=== PATIENT | female | born 1950 | race Caucasian/White ===

== ENCOUNTER 2016-11-11 16:48 | Emergency (ER) | payer OTHER ==
[~2016-11-11] VITALS: Ht 157.5 cm; Wt 81.4 kg
[~2016-11-11 16:48] MED LIST: ALBU8.5H INH; LEVO100T12 PO
[2016-11-11 16:49] VITALS: Ht 157.5 cm; Wt 81.4 kg
--- NOTE | 2016-11-11 16:50 | NUR ---
PROVIDER Karen RAMACHANDRAN APRN AT BEDSIDE FOR EXAM.
--- OUTSIDE RECORDS SUMMARY | 2016-11-11 16:53 | XMS REPORT | Continuity of Care Document ---
Author Author [facility] Organization [facility] Address Unknown Phone Unavailable Support Name Relationship Address Phone MATTIE HAGEN Caregiver [address] [place], [place] [id number] POONAM BARRIENTOS DPM Caregiver [address] [place], [place] [address] [phone] ARIEL LYNN Next Of Kin [address] [place], [place] [id number] Insurance Providers Payer Name Policy Number Subscriber Name Relationship [employer] Ppo/Open Choice [id number] Ariel Lynn 01 Spouse Advance Directives Directive Response Recorded Date/Time Ordered Resuscitation Status Full Code, unverified 06/16/14 10:54am Resuscitation Documents on File No 06/16/14 9:17am Problems No known problems or medical conditions. Medications Medication Dose Route Sig Days/Qty Instructions Order Date Discontinued Date Status Azithromycin 250 Mg PO 08/24/08 09/14/08 Discontinued Levothyroxine Sodium 1 Tab PO BEFORE BREAKFAST Once daily before breakfast 06/16/14 Active Albuterol Sulfate 1 Puff INH NEEDED 06/16/14 Active Social History Social History Problem Response Recorded Date/Time Smoking Status Never smoker 06/17/2014 7:30am Chewing Tobacco Status No 06/16/2014 9:13am Hx Substance Use No 06/16/2014 9:13am Hx Alcohol Use Y WINE OCCASIONALLY 06/17/2014 7:30am Has the pt used tobacco in the last 12 months No 06/16/2014 9:13am Hospital Discharge Instructions No hospital discharge instructions. Plan of Care No plan of care. Functional Status No functional status results. Allergies, Adverse Reactions, Alerts Allergen Type Severity Reaction Status Last Updated Penicillin Allergy Unknown Active 08/24/08 Sulfa (Sulfonamide Antibiotics) Allergy Unknown Active 06/16/14 Peanuts Allergy Intermediate hives Active 09/15/08 Iodine Allergy Severe SWELLING Active 08/24/08 Codeine Allergy Mild RASH Active 09/14/08 Hydrocodone Adverse Reaction Unknown N/V Active 06/16/14 Peanut Oil Allergy Intermediate hives Active 09/15/08 Immunizations Name Given Type Hx Influenza Vaccination No Historical Hx Pneumococcal Vaccination No Historical Hx Influenza Vaccination No Historical Vital Signs Acute Vital Signs Vital Response Date/Time Temperature (Fahrenheit) 97.7 deg F (96.8 - 99.1) Temperature (Calculated Celsius) 36.20859 degrees C (36.0 - 37.3) Temperature Source Temporal Pulse Rate (adult) 74 bpm (60 - 100) Respiratory Rate 16 breaths/min (10 - 20) O2 Sat by Pulse Oximetry 95 % (90 - 100) Oxygen Delivery Method Room Air Blood Pressure 134/66 mm Hg Blood Pressure Source Automatic Cuff Height 5 ft 2 in Weight 184 lb Body Mass Index 33.0 kg/m^2 Results Test Source Date Result Interp. Ref. Range Comments Alanine Aminotransferase (ALT/SGPT) August 24, 2008 12:01am 35 U/L N 9- 52 Albumin August 24, 2008 12:01am 4.6 G/DL N 3.5-5.0 Albumin/Globulin Ratio August 24, 2008 12:01am 1.2 RATIO N 1.1-2.2 Alkaline Phosphatase August 24, 2008 12:01am 124 U/L N 38-126 Amylase Level August 25, 2008 1:40am 53 U/L N 30-110 Anion Gap August 24, 2008 12:01am 17.3 MEQ/L H 5-15 Aspartate Amino Transf (AST/SGOT) August 24, 2008 12:01am 74 U/L H 14- 36 B-Type Natriuretic Peptide August 24, 2008 12:01am < 15 PG/ML L 15-100 BUN/Creatinine Ratio August 24, 2008 12:01am 21 RATIO N 6-26 Band Neutrophils # August 24, 2008 12:01am 0.2 T/MM3 - Band Neutrophils % August 24, 2008 12:01am 1.0 % N 0-6 Basophils # (Auto) August 24, 2008 12:01am Not Performed 0-0.2 Basophils (%) (Auto) August 24, 2008 12:01am Not Performed 0-2 Blood Urea Nitrogen August 24, 2008 12:01am 18 MG/DL H 7-17 Calcium Level August 24, 2008 12:01am 10.4 MG/DL H 8.4-10.2 Calculated Osmolality August 24, 2008 12:01am 284 MOSM/KG H 261-280 Carbon Dioxide Level August 24, 2008 12:01am 24 MEQ/L N 22-30 Chloride Level August 24, 2008 12:01am 103 MEQ/L N 98-107 Creatinine August 24, 2008 12:01am 0.9 MG/DL N 0.7-1.2 Eosinophils # (Auto) August 24, 2008 12:01am Not Performed 0-0.5 Eosinophils # (Manual) August 24, 2008 12:01am 0.6 T/MM3 H 0-0.5 Eosinophils % (Manual) August 24, 2008 12:01am 4.0 % N 0-4 Eosinophils (%) (Auto) August 24, 2008 12:01am Not Performed 0-4 Globulin August 24, 2008 12:01am 3.7 G/DL H 2.4-3.5 Glucose Level August 24, 2008 12:01am 163 MG/DL H 65-110 Hematocrit August 24, 2008 12:01am 41.9 % N 36-46 Hemoglobin August 24, 2008 12:01am 14.4 GM/DL N 12-16 Hepatitis A IgM Antibody September 28, 2008 10:31am Negative - Hepatitis B Core IgM Antibody September 28, 2008 10:31am Negative - Hepatitis B Surface Antigen September 28, 2008 10:31am Negative - Hepatitis C Antibody September 28, 2008 10:31am Negative - Lipase August 25, 2008 1:40am 158 U/L N 23-300 Lymphocytes # (Auto) August 24, 2008 12:01am Not Performed 1-4.8 Lymphocytes # (Manual) August 24, 2008 12:01am 5.9 T/MM3 H 1-4.8 Lymphocytes % (Manual) August 24, 2008 12:01am 38.0 % N 23-45 Lymphocytes (%) (Auto) August 24, 2008 12:01am Not Performed 23-45 Mean Corpuscular Hemoglobin August 24, 2008 12:01am 29.9 UUG N 26-34 Mean Corpuscular Hemoglobin Concent August 24, 2008 12:01am 34.4 GM/DL N 31-37 Mean Corpuscular Volume August 24, 2008 12:01am 86.9 UM3 N 80-100 Mean Platelet Volume August 24, 2008 12:01am 10.4 UM3 N 7.4-10.4 Monocytes # (Auto) August 24, 2008 12:01am Not Performed 0-0.8 Monocytes # (Manual) August 24, 2008 12:01am 0.5 T/MM3 N 0-0.8 Monocytes % (Manual) August 24, 2008 12:01am 3.0 % N 0-9.0 Monocytes (%) (Auto) August 24, 2008 12:01am Not Performed 0-9.0 Neutrophils # (Auto) August 24, 2008 12:01am Not Performed 1.8-7.7 Neutrophils # (Manual) August 24, 2008 12:01am 8.4 T/MM3 H 1.8-7.7 Neutrophils % (Manual) August 24, 2008 12:01am 54.0 % N 33-66 Neutrophils (%) (Auto) August 24, 2008 12:01am Not Performed 33-66 Platelet Count August 24, 2008 12:01am 266 T/MM3 N 130-400 Potassium Level August 24, 2008 12:01am 3.6 MEQ/L N 3.6-5 RDW Standard Deviation August 24, 2008 12:01am 39.7 FL N 36.9-50.2 Red Blood Count August 24, 2008 12:01am 4.82 M/MM3 N 4.00-5.20 Sodium Level August 24, 2008 12:01am 144 MEQ/L N 134-144 Total Bilirubin August 24, 2008 12:01am 0.67 MG/DL N 0.20-1.30 Total Protein August 24, 2008 12:01am 8.3 G/DL H 6.3-8.2 Troponin I August 24, 2008 12:01am 0.00 ng/ml N 0-0.03 White Blood Count August 24, 2008 12:01am 15.5 T/MM3 H 4.5-11.0 EKG August 24, 2008 12:01am Complete - HIV (1&2) Antibody Rapid September 28, 2008 10:31am Negative - Glomerular Filtration Rate Calc August 24, 2008 12:01am 67 - Name: NARA LYNN Unit #: [id number] : 1950 Sex: F Loc / Svc: [facility] [place] DOS: 06/17/14 Signed Report #: [id number] DIAGNOSTIC IMAGING REPORT TYPE OF EXAM: FOOT RIGHT 2 VIEWS Dictated By: BREANN HAMPTON MD Indication: ITS.REASON: POST PROCEDURE Comparison: None Findings: Postsurgical changes in the first digit with arthrodesis plate and screws across the first metatarsophalangeal joint. Osteotomies in the second metatarsal head and proximal phalanx of the second toe. Impression: Postsurgical change as above. . Procedures Procedure Status Date Provider(s) Fusion of metacarpophalangeal joint completed 06/17/14 POONAM BARRIENTOS DPM
--- OUTSIDE RECORDS SUMMARY | 2016-11-11 16:53 | XMS REPORT | Continuity of Care Document ---
Author Author [facility] Organization [facility] Address Unknown Phone Unavailable Allergies Medications Problems Date Dx Coded Attending Type Code Diagnosis Diagnosed By 05/07/2012 Glenroy Buenrostro MD 244.9 HYPOTHYROIDISM NOS 05/07/2012 Glenroy Buenrostro MD 275.2 DIS MAGNESIUM METABOLISM 05/07/2012 Glenroy Buenrostro MD 493.90 ASTHMA, UNSPECIFIED 05/07/2012 Glenroy Buenrostro MD 716.90 ARTHROPATHY NOS-UNSPEC 05/07/2012 Glenroy Buenrostro MD 722.52 LUMB/LUMBOSAC DISC DEGEN 05/07/2012 Glenroy Buenrostro MD 724.2 LUMBAGO 05/07/2012 Glenroy Buenrostro MD 727.40 SYNOVIAL CYST NOS 05/07/2012 Glenroy Buenrostro MD 756.12 SPONDYLOLISTHESIS Procedures Code Description Performed By Performed On 77.79 EXCISE BONE FOR GFT NEC Glenroy Buenrostro MD 05/07/2012 80.51 EXCISION INTERVERT DISC Glenroy Buenrostro MD 05/07/2012 81.08 LUMBAR LUMBOSACRAL FUSION OF ANTERIOR COL/TECHNI Glenroy Buenrostro MD 05/07/2012 81.62 FUSION/REFUS OF 2-3 VERTEBRAE Glenroy Buenrostro MD 05/07/2012 83.39 EXC LES SOFT TISSUE Glenroy Mccain MD 05/07/2012 84.51 INSERTION OF INTERBODY SPINAL FUSION DEVICE Glenroy Buenrostro MD 05/07/2012 84.52 INSERTION OF RECOMBINANT BONE MORPHOGENETIC PROTEI Glenroy Buenrostro MD 05/07/2012 Results Test Result Range HGB HCT - 05/08/12 05:20 MEAN CELL VOLUME 90.2 fl 80.0-100.0 HEMOGLOBIN 13.1 gm/dL 12.0-16.0 HEMATOCRIT 38.5 % 37.0-47.0 METABOLIC PANEL, BASIC - 05/08/12 05:20 POTASSIUM 4.0 mmol/L 3.5-5.3 EST GFR (MDRD) > 60 mL/min > 59 ANION GAP 8 mmol/L 5-15 EST CrCl (CG) 59 mL/min > 59 GLUCOSE 159 mg/dL 70-99 CALCIUM 8.7 mg/dL 8.5-10.1 BLOOD UREA NITROGEN 12 mg/dL 7-20 CREATININE 0.8 mg/dL 0.6-1.0 SODIUM 136 mmol/L 135-148 CHLORIDE 100 mmol/L 98-110 CARBON DIOXIDE 28 mmol/L 21-32 MAGNESIUM - 05/08/12 05:20 MAGNESIUM 1.7 mg/dL 1.8-2.4 MRSA SURVEILLANCE SCREEN - 05/08/12 15:40 Uncategorized METABOLIC PANEL, BASIC - 05/09/12 05:30 POTASSIUM 4.1 mmol/L 3.5-5.3 EST GFR (MDRD) > 60 mL/min > 59 ANION GAP 8 mmol/L 5-15 EST CrCl (CG) > 60 mL/min > 59 GLUCOSE 149 mg/dL 70-99 CALCIUM 8.3 mg/dL 8.5-10.1 BLOOD UREA NITROGEN 10 mg/dL 7-20 CREATININE 0.7 mg/dL 0.6-1.0 SODIUM 139 mmol/L 135-148 CHLORIDE 106 mmol/L 98-110 CARBON DIOXIDE 25 mmol/L 21-32 MAGNESIUM - 05/09/12 05:30 MAGNESIUM 1.9 mg/dL 1.8-2.4 Encounters ACCT No. Visit Date/Time Discharge Status Pt. Type Provider Facility Loc./Unit Complaint [id number] 05/07/2012 10:57:00 2011 14:40:00 DIS Inpatient Porter COLEMAN, Glenroy Arzola [facility]
[2016-11-11] MEDS ORDERED: ASPIRIN 81 MG CHEWABLE TABLET PO ONE (17:00)
--- OUTSIDE RECORDS SUMMARY | 2016-11-11 17:02 | XMS REPORT | Continuity of Care Document ---
Author Author [facility] Organization [facility] Address Unknown Phone Unavailable Allergies Medications Problems Date Dx Coded Attending Type Code Diagnosis Diagnosed By 05/07/2012 Glenroy Buenrostro MD 244.9 HYPOTHYROIDISM NOS 05/07/2012 Glenroy Buenrostro MD 275.2 DIS MAGNESIUM METABOLISM 05/07/2012 Glenroy Buenrostro MD 493.90 ASTHMA, UNSPECIFIED 05/07/2012 Glenroy Buenrostro MD 716.90 ARTHROPATHY NOS-UNSPEC 05/07/2012 Glernoy Buenrostro MD 722.52 LUMB/LUMBOSAC DISC DEGEN 05/07/2012 [...] Status Pt. Type Provider Facility Loc./Unit Complaint [id number] 05/07/2012 10:57:00 2011 14:40:00 DIS Inpatient Porter COLEMAN, Glenroy Arzola [facility]
--- OUTSIDE RECORDS SUMMARY | 2016-11-11 17:03 | XMS REPORT | Continuity of Care Document ---
Author Author [facility] Organization [facility] Address Unknown Phone Unavailable Support Name Relationship Address Phone MATTIE HAGEN Caregiver [address] [place], [place] [phone] POONAM BARRIENTOS DPM Caregiver [address] [place], [place] [address] [phone] ARIEL LYNN Next Of Kin [address] [place], [place] [id number] Insurance Providers Payer Name Policy Number Subscriber Name Relationship [employer] Ppo/Open Choice [id number] Ariel Lynn 01 Spouse Advance Directives Directive [...] F (96.8 - 99.1) Temperature (Calculated Celsius) 36.40941 degrees C (36.0 - 37.3) Temperature Source [...] 67 - Name: NARA LYNN Unit #: [id number] : 1950 Sex: F [place] [facility] [place]17[place]14 Signed Report #: [id number] DIAGNOSTIC IMAGING REPORT TYPE OF EXAM: FOOT [...]
--- NOTE | 2016-11-11 17:04 | ERPDOC ---
Departure Disposition Decision Date: Nov 11, 2016 Disposition Decision Time: 17:40 (SHAHLAKANDI HORN APRN) Disposition: 01 DISCHARGED HOME, SELF-CARE Impression Impression (SHAHLAKORYKANDI Jacinto APRN) Impression: Primary Impression: Atypical chest pain Severity: Moderate (KANDI RAMACHANDRAN APRN) Condition: Stable Seen By: Mid-level only (KANDI RAMACHANDRAN APRN) Referrals: MATTIE HAGEN (Family) Patient Instructions: Chest Pain (ED) Problems/Meds/Labs Reviewed?: Yes Medications reviewed and manag: Yes (KANDI RAMACHANDRAN APRN) Additional Instructions: Your labs and EKG and xray today are all normal. I do want you to monitor your symptoms and start the Omeprazole as prescribed. Please follow up with your primary care provider if this is not improving at all. Follow up care ordered?: Yes Mental Status: Alert (KANDI RAMACHANDRAN APRN) Scripts Omeprazole (Omeprazole) 20 Mg Tablet.dr 20 MG PO ACB, #20 TAB 0 Refills Take one tablet by mouth twice daily for 7 days, then one tablet by mouth daily. Prov: MADIEKANDI APRN 11/11/16 HPI - Chest Pain General Chief Complaint: Cardiac Complaint Stated Complaint: CHEST PAIN Time Seen by Provider: 16:51 Source: patient Exam Limitations: no limitations (KANDI RAMACHANDRAN APRN) Time Seen by Provider: 16:51 (HUSEYIN GODFREY DO) HPI - Chest Pain Initial Comments She was at a restaurant for lunch yesterday and had just started eating a salad. She had onset of sharp intense chest pain when she started eating. She did not have any associated nausea or shortness of breath. The pain did improve but she has a persistent subtle pain in the center of Occurred At: home Onset/Timing: Gradual Duration: 12-24 hrs Activities at Onset/Context: none Location: substernal Quality: pressure, sharp (at the time of the intense pain) Associated Symptoms: back pain (left sided back pain), dizziness, DENIES: abdominal pain, diaphoresis, edema, fast HR, fatigue, fever/chills, headache, heartburn, irregular HR, nausea/vomiting, rash, shortness of breath, slow HR, swelling/lump in chest, syncope, weakness Chest Pain Radiation: no radiation Nitro Today/Relief: no nitro taken today Aspirin Treatment Today: unknown Hx of Similar Symptoms: No (NOLD,KANDI N TIRE MOLDER) Allergies: Coded Allergies: iodine (Unverified Allergy, Severe, SWELLING, 11/11/16) peanut (Verified Allergy, Intermediate, hives, 11/11/16) peanut oil (Verified Allergy, Intermediate, hives, 11/11/16) codeine (Verified Allergy, Mild, RASH, 11/11/16) Penicillins (Unverified Allergy, Unknown, 11/11/16) Sulfa (Sulfonamide Antibiotics) (Unverified Allergy, Unknown, 11/11/16) hydrocodone (Unverified Adverse Reaction, Unknown, N/V, 11/11/16) Past History Vaccines Hx Influenza Vaccination: No Hx Pneumococcal Vaccination: No (NOLD,KANDI N TIRE MOLDER) Review of Systems Constitutional Constitutional: dizziness, DENIES: chills, fatigue, fever, weakness (NOLD, KANDI N TIRE MOLDER) Cardiovascular Cardiac: chest pain, DENIES: dyspnea on exertion, orthopnea Rhythm/Rate: DENIES: irregular beat, palpitations Vascular: DENIES: pedal edema, unilateral swelling (NOLD,KANDI N TIRE MOLDER) Pulmonary Respiratory: DENIES: cough, dyspnea, sputum, tachypnea (NOLD,KANDI N TIRE MOLDER) GI Upper Abdomen: DENIES: nausea, pain, vomiting Lower Abdomen: DENIES: constipation, diarrhea, pain (NOLD,KANDI N TIRE MOLDER) Integumentary Skin: DENIES: rash (NOLD,KANDI N TIRE MOLDER) Neurological General: DENIES: headache, numbness, tingling, weakness (NOLD,KANDI N TIRE MOLDER) Physical Exam General General Nourishment: well nourished, well developed, appears stated age, no acute distress, adult General Body Habitus: well groomed (NOLD,KANDI N TIRE MOLDER) Vitals and Pain First Documented Vital Signs Date Time Temp Pulse Resp B/P Pulse Ox O2 Delivery O2 Flow Rate FiO2 11/11/16 16:49 98.4 85 20 185/85 95 Room Air (HUSEYIN GODFREY DO) Vitals and Pain Weight: Kilograms: Height (feet): 5 Height (inches): 2.00 Triage Pain Scale: (NOLD,KANDI N TIRE MOLDER) RN VS reviewed by Provider: Yes (KANDI RAMACHANDRAN APRN) Normal Exams: Neck: Full range of motion, without adenopathy, JVD, bruits or thyromegaly Chest/Resp: Clear all pereyra, with good airflow, and symmetry bilaterally CV: Regular rate and rhythm, without murmur or gallop, Pulses 2+ all extremities, capillary refill, <2 seconds all ext., no pedal edema noted Abdomen: Bowel sounds positive, soft, non-tender, non-distended, no hepatosplenomegaly, masses or bruits noted Lymphatic: No lymphadenopathy, or lymphedema noted Integumentary: No rashes, hives, or bruising noted Neurologic: Patient is alert, and oriented Psychiatric: Patient exhibits, appropriate attention, emotion and affect (KANDI RAMACHANDRAN APRN) Differential Diagnoses Considering: Acute IA, Anxiety/Panic, Angina, Costochondritis, Esophageal Spasm , GERD, Pneumonia, Muscle Spasm (KANDI RAMACHANDRAN APRN) Progress Results/Orders Orders Procedure Category Date Status Time EKG EKG 11/11/16 Taken Cbc W/Auto LAB 11/11/16 Complete Diff-Reflex Manual 16:58 Bmp - Basic Metabolic LAB 11/11/16 Complete Panel 16:58 Troponin I W LAB 11/11/16 Complete Hemolysis Index 16:58 Chest 1 View RAD 11/11/16 Resulted 16:58 Iv Lock (Ed Only) EDM 11/11/16 Transmitted 16:58 Aspirin (Asa) PHA 11/11/16 Complete 17:00 G.I. Cocktail PHA 11/11/16 Complete (/Maalox/Lidocaine 17:45 (HUSEYIN GODFREY DO) Lab Results Laboratory Tests Test 11/11/16 17:14 White Blood Count 11.8T/MM3 Red Blood Count 5.05M/MM3 Hemoglobin 15.0GM/DL Hematocrit 44.6% Mean Corpuscular Volume 88.3UM3 Mean Corpuscular Hemoglobin 29.7UUG Mean Corpuscular Hemoglobin Concent 33.6GM/DL RDW Standard Deviation 40.8FL Platelet Count 264T/MM3 Mean Platelet Volume 10.2UM3 Immature Granulocyte % (Auto) 0.3% Neutrophils (%) (Auto) 39.9% Lymphocytes (%) (Auto) 48.0% Monocytes (%) (Auto) 7.0% Eosinophils (%) (Auto) 4.2% Basophils (%) (Auto) 0.6% Absolute Immature Granulocyte (auto 0.03T/MM3 Absolute Neutrophils (auto) 4.7T/MM3 Absolute Lymphocytes (auto) 5.7T/MM3 Absolute Monocytes (auto) 0.8T/MM3 Absolute Eosinophils (auto) 0.5T/MM3 Absolute Basophils (auto) 0.1T/MM3 Turbidity < 20 Sodium Level 146MEQ/L Potassium Level 4.3MEQ/L Chloride Level 105MEQ/L Carbon Dioxide Level 26MEQ/L Anion Gap 15MEQ/L Blood Urea Nitrogen 17.0MG/DL Creatinine 0.7MG/DL Glomerular Filtration Rate Calc 84 BUN/Creatinine Ratio 24RATIO Glucose Level 103MG/DL Calculated Osmolality 283MOSM/KG Calcium Level 10.5MG/DL Icterus Index < 2 Troponin I < 0.012ng/ml Chemistry Specimen Hemolysis < 15 (HUSEYIN GODFREY DO) Medications Current ED Medications Aspirin (ASA) 324 mg O ONCE PO ; Start 11/11/16 at 17:00; Stop 11/11/16 at 17:01 ; Status DC Pharmacy Profile Note (/Maalox/ Lidocaine Soln) 30 ml O ONCE PO Last administered on 11/11/16t 17:51; Start 11/11/16 at 17:45; Stop 11/11/16 at 17:46; Status DC (HUSEYIN GODFREY DO) Progress Progress CBC, BMP, and troponin today was normal. EKG shows NSR. Chest xray is clear today. Will have her go ahead and go home and monitor symptoms. I do think that this is likely a GERD or esophageal spasm. Start some Omeprazole today. Follow up with PCP if not improving at all. (KANDI RAMACHANDRAN APRN) EKG EKG : Rate: 60-100 Rhythm: sinus [place]: normal QRS: normal Intervals: normal ST/T: non-specific changes Interpreted by: signing physician (HUSEYIN GODFREY DO) EKG ScImage/Picomm EKG interpreted in ScImage/Pic: No (HUSEYIN GODFREY DO) Xray Xray : Reason for Exam: chest pain Xray: CXR Portable Interpretation: Normal (KANDI RAMACHANDRAN N TIRE MOLDER) KANDI RAMACHANDRAN APRN Nov 11, 2016 17:04 HUSEYIN GODFREY DO Nov 12, 2016 06:29
--- NOTE | 2016-11-11 17:04 | NUR ---
XRAY PORTABLE XRAY AT BEDSIDE.
--- NOTE | 2016-11-11 17:07 | NUR ---
LAB AT BEDSIDE FOR BLOOD DRAW.
[2016-11-11] MEDS ORDERED: OMEP20CA10 PO (17:14)
[2016-11-11 17:18] LABS: BASOPHILS # (AUTO) 0.1 T/MM3 (0-0.2); BASOPHILS % (AUTO) 0.6 % (0-2); EOSINOPHILS # (AUTO) 0.5 T/MM3 (0-0.5); EOSINOPHILS % (AUTO) 4.2 % (0-4); HCT - HEMATOCRIT 44.6 % (36-46); IMMATURE GRANULOCYTE # (AUTO) 0.03 T/MM3 (0.00-0.03); IMMATURE GRANULOCYTE % (AUTO) 0.3 % (0.0-0.5); LYMPHOCYTES # (AUTO) 5.7 T/MM3 (1-4.8); MEAN CORPUSCULAR HGB 29.7 UUG (26-34); MEAN CORPUSCULAR HGB CONC(MCHC 33.6 GM/DL (31-37); MEAN CORPUSCULAR VOLUME 88.3 UM3 (80-100); MEAN PLATELET VOLUME 10.2 UM3 (9.4-12.4); MONOCYTES # (AUTO) 0.8 T/MM3 (0-0.8); NEUTROPHILS #(AUTO)-ABSOLUTE 4.7 T/MM3 (1.8-7.7); NEUTROPHILS % (AUTO) 39.9 % (33-66); RED BLOOD COUNT 5.05 M/MM3 (4.00-5.20); WBC - WHITE BLOOD COUNT 11.8 T/MM3 (4.5-11.0)
[2016-11-11 17:27] LABS: ANION GAP 15 MEQ/L (5-15); BUN/CREATININE RATIO 24 RATIO (6-26); CALCIUM 10.5 MG/DL (8.4-10.2); CHLORIDE 105 MEQ/L (98-107); CO2 - CARBON DIOXIDE 26 MEQ/L (22-30); CREATININE 0.7 MG/DL (0.7-1.2); GLOMERULAR FILTRATION RATE 84; GLUCOSE 103 MG/DL (65-110); POTASSIUM 4.3 MEQ/L (3.6-5); SODIUM 146 MEQ/L (134-144)
--- NOTE | 2016-11-11 17:32 | DI ---
Indication: ITS.REASON: Left-sided chest pain radiating to the back for two days PROCEDURE: CHEST 1 VIEW: Encounter: Initial Comparison: August 25, 2008 Findings: The lungs are stable in appearance without new focal airspace consolidation. There is no pleural effusion or pneumothorax. The heart size, pulmonary vascularity and mediastinal contours are unchanged. IMPRESSION: Stable appearance of the chest without acute cardiopulmonary disease. .
[2016-11-11] MEDS ORDERED: OMEP-122 PO (17:43)
[2016-11-11] MEDS ORDERED: G.I. COCKTAIL 30ml PO ONE (17:45)
--- NOTE | 2016-11-11 17:48 | NUR ---
PROVIDER AYAAN RAMACHANDRAN APRN IN ROOM WITH PT.
--- NOTE | 2016-11-11 17:50 | NUR ---
ORAL MEDS/ASA REFUSED PT AGREES TO AND IS GIVE A GI COCKTAIL. PT IS REFUSING ASA AT THIS TIME. DRY FOLDER CLOTH IN ROOM WITH PT AND IS AWARE OF PT'S REFUSAL.
[2016-11-11 18:10] VITALS: BP 166/73; PULSE 77; RESP 16; TEMP 98.7; O2SAT 99
== END 2016-11-11 18:10 | disposition home or self-care (01) ==
LOC: ED 16:48
DX: R07.89 Other chest pain (principal)
CPT/HCPCS: 36415; 71010; 80048; 84484; 85025; 93005; 99284; J7999